=== PATIENT | female | born 1945 | race Caucasian/White ===

== ENCOUNTER 2016-11-08 21:32 | Inpatient (IN) ==
[2016-11-09] MEDS ORDERED: HALOPERIDOL 0.5 MG TABLET PO PRN (00:24)
[2016-11-09] MEDS ORDERED: HALOPERIDOL 5 MG/ML INJECTION IM PRN (00:24)
[2016-11-09] MEDS ORDERED: LORazepam 0.5 MG TABLET PO PRN (00:24)
[2016-11-09] MEDS ORDERED: HALOPERIDOL 1 MG/0.5 ML ORAL LIQUID PO PRN (01:52)
[2016-11-09] MEDS ORDERED: LORazepam INTENSOL 1mg/0.5ml ORAL LIQUID SL PRN (01:53)
[2016-11-09] MEDS: OMEPRAZOLE 20 MG CAPSULE PO SCH ×3 (09:51→16:31)
[2016-11-09] MEDS: LEVOTHYROXINE 25 MCG TABLET PO SCH (09:52)
[2016-11-09] MEDS: LORATADINE 10 MG TABLET PO SCH (09:52)
[2016-11-09] MEDS: CITALOPRAM 40 MG TABLET PO SCH (09:52)
[2016-11-09] MEDS: DIVALPROEX ER 500 MG TABLET PO SCH ×2 (09:53→21:01)
[2016-11-09] MEDS: MELOXICAM 7.5 MG TABLET PO SCH (09:53)
[2016-11-09] MEDS: FUROSEMIDE 20 MG TABLET PO SCH (09:53)
[2016-11-09] MEDS: MULTI-VIT + MINERAL (Opti-gen) TABLET PO SCH (09:54)
[2016-11-09] MEDS: ALLOPURINOL 300 MG TABLET PO SCH (09:54)
[2016-11-09] MEDS: TIOTROPIUM 18mcg/cap HANDIHALER ORAL INH SCH (10:18)
[2016-11-09] MEDS: NICOTINE 14 MG PATCH TD SCH (12:25)
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
--- NOTE | 2016-11-09 14:08 | History & Physical Report ---
<Therese Vides - Last Filed: 11/09/16 13:56> History of Present Illness Date: 11/09/16 Chief complaint: bipolar, hypertension HPI: Linette Villalba is a 71-year-old female resident of [facility] in [place] who presented to [facility] on 11/08/16 for psychiatric evaluation of agitation and suicidal ideations. She reports that for the past couple of weeks she has started to feel like she was beginning to "spiral" down. She admits to active thoughts of harming herself, specifically with a knife and has a history of prior gestures and attempts including cutting on her wrist with a dull knife and previous intentional medication overdose. She reports that she has become increasing irritable and agitated and has been having problems sleeping. She admits to feeling unsafe and feels as if her brain is not functioning correctly. Due to increasing thoughts of stabbing herself, she notified the triage provider at [facility] and was taken to [facility] for further evaluation. She denies any recent illness, fever, chills, chest pain, shortness of breath, abdominal pain, nausea, vomiting, dysuria or hematuria. No diarrhea or constipation. She denies visual or auditory hallucinations. In the ED, she underwent psychiatric screening including labs which revealed WBC 8.4, hemoglobin 12.7, platelets 247, hyponatremia 135, potassium 3.8, BUN 21, SCr 0.9 and glucose 103. UA showed >50 WBC with bacteria present. She was diagnosed with UTI and given Keflex 500mg x 1 dose but no RX was provided. Due to her bipolar disorder with suicidal ideation, she was [facility] for further psychiatric evaluation and treatment. The hospitalist service was consulted for medical management. In addition to a history of bipolar, she also has hypertension, COPD, GERD, hypothyroid and hyperlipidemia. Review of Systems - Constitutional Constitutional: Absent: daytime sleepiness, fever(s), headache(s), weakness Comments: insomnia - EENMT Eyes: Absent: blurry vision, change in vision Nose: Present: allergies. Absent: nosebleeds Mouth/Throat: Present: dry mouth. Absent: sore throat - Cardiovascular Cardiovascular: Absent: chest pain, palpitations, syncope, dyspnea on exertion Vascular: Present: pedal edema. Absent: unilateral swelling - Respiratory Respiratory: Present: cough (chronic), dyspnea on exertion (chronic), wheezing. Absent: pain on inspiration - Gastrointestinal Gastrointestinal: Absent: abdominal pain, change in bowel habits, change in stool character, constipation, diarrhea, nausea, vomiting - Genitourinary Genitourinary: Present: dysuria. Absent: flank pain - Musculoskeletal Musculoskeletal: Absent: back pain, deformity, limited range of motion, muscle weakness - Integumentary/Breasts Integumentary: Absent: erythema, lesions, jaundice - Neurological Neurological: Absent: abnormal movements, abnormal speech, convulsions, focal weakness, weakness - Psychiatric Psychiatric: Present: as per HPI, abnormal sleep pattern, anxiety, behavioral changes, depression, difficulty concentrating, hopelessness, mood swings, paranoia, suicidal ideation - Endocrine Endocrine: Absent: polyphagia, polyuria - Hematologic/Lymphatic Hematologic/Lymphatic: Absent: easy bleeding - Allergic/Immunologic Allergic/Immunologic: Present: seasonal rhinorrhea PFSH Patient Stated Medical History Other HEENT Yes: wears reading glasses, not with pt Hypertension Yes Chronic Obstructive Pulmonary Yes Disease (COPD) Ulcer Yes: PUD Osteoarthritis Yes: knees Other Musculoskeletal Yes: Arthritis Bipolar Disorder Yes Depression Yes Medical History Updates: 1. Bipolar. 2. Hypertension. 3. COPD. 4. Hyperlipidemia. 5. COPD. 6. GERD. 7. Hypothyroidism. 8. Chronic pain. 9. Seasonal allergies. 10. Osteoarthritis. 11. Obesity. Surgical History: 1. 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 - Social History Smoking status: Current every day smoker Packs per day: 1 second hand exposure: Yes Time spent discussing smoking cessation with patient: 3 to 10 minutes Substance use type: does not use Alcohol intake frequency: does not drink Housing: assisted living facility ([facility]) Household members: caregiver Current occupational status: retired Does patient use chewing tobacco?: No Current residence: Assisted Living Medications Home Medications Medication Instructions Recorded Confirmed Type Acetaminophen [Tylenol] 650 mg PO Q6H PRN 11/08/16 11/08/16 History Allopurinol [Zyloprim] 300 mg PO DAILY 11/08/16 11/09/16 History Atorvastatin [Lipitor] 20 mg PO HS 11/08/16 11/09/16 History Divalproex ER [Depakote ER] 500 mg PO BID 11/08/16 11/09/16 History Furosemide [Lasix] 30 mg PO DAILY 11/08/16 11/08/16 History Hydrocodone/APAP 5/325 [[place] 1 tab PO Q6HR PRN 11/08/16 11/08/16 History 5/325] Levothyroxine Tab [Synthroid] 25 mcg PO ACB 11/08/16 11/09/16 History Loratadine [Claritin] 10 mg PO DAILY 11/08/16 11/08/16 History Meloxicam [Mobic] 7.5 mg PO DAILY 11/08/16 11/09/16 History Omeprazole [Prilosec] 20 mg PO AC 11/08/16 11/09/16 History Citalopram [Celexa] 40 mg PO DAILY 11/09/16 11/09/16 History ClonazePAM [Klonopin] 0.5 mg PO TID PRN 11/09/16 11/09/16 History Debrox 4 drops EACH EAR DAILY PRN 11/09/16 11/09/16 History Guaifenesin Oral Liq [Robitussin] 100 mg PO Q4H PRN 11/09/16 11/09/16 History MULTI-VIT + MINERAL (Opti-gen) 1 tab PO DAILY 11/09/16 11/09/16 History [Vision] Robitussin Cough-Chest Dm Liq 5 ml PO Q6H PRN 11/09/16 11/09/16 History Tiotropium Handihaler [Spiriva] 18 mcg ORAL INH DAILY 11/09/16 11/09/16 History Allergies Allergy/AdvReac Type Severity Reaction Status Date / Time adhesive tape AdvReac Unknown Verified 11/09/16 03:41 aspirin AdvReac Unknown Verified 11/09/16 03:43 sulfamethoxazole AdvReac Unknown Verified 11/09/16 03:43 sulfanilamide AdvReac Unknown Verified 11/09/16 03:44 Exam Vital Signs: Temp Pulse Resp BP Pulse Ox 97.4 F 89 16 133/71 92 11/09/16 08:00 11/09/16 10:04 11/09/16 10:29 11/09/16 08:00 11/09/16 10:04 Height: 5 ft 7 in Weight: 87.7 kg Body Mass Index: 30.2 - Constitutional Present: no acute distress, well nourished, well developed, obese, cooperative - Routine HEENT Exam Head: Present: normocephalic, atraumatic Eye: Present: PERRL. Absent: conjunctival icterus, scleral injection ENT: Present: mucous membranes moist - Routine Neck Exam Present: supple, full ROM, trachea midline - Routine Chest/Breast/Axilla Exam Chest wall: Absent: tenderness - Routine Respiratory Exam Present: decreased breath sounds, prolonged expiratory phase, wheezes. Absent: rhonchi Comments: pursed lips - Routine Cardiovascular Exam Present: RRR, S1, S2 - Routine Abdominal Exam Present: soft, normoactive bowel sounds, non distended, non tender - Routine Extremities Exam Present: edema (trace bilateral lower extremities), full ROM, pulses intact Comments: ambulates easily but has walker for support if needed; doesn't use walker on ambulation to room. - Routine Back/Spine/Pelvis Exam Back/Spine: Present: full ROM - Routine Skin Exam Present: intact, dry, warm. Absent: erythema, rash - Routine Neurological Exam Present: alert, oriented X3, moving all extremities, hearing grossly intact, normal speech - Routine Psychiatric Exam Present: normal thought process, suicidal ideation, cooperative. Absent: homicidal ideation, auditory hallucinations, visual hallucinations Assessment and Plan Assessment and Plan: . Bipolar with behavioral disturbance and suicidal ideation. * Agree with [facility] to [facility] for further evaluation and psychiatric treatment. * Provide a safe and supportive environment, encouraging patient to participate in floor activities. * Obtain admission work up. CBC, CMP and UA obtained prior to admission at [facility]. Obtain remaining labs and imaging - results pending. . UTI, acute. * UA obtained at [facility] revealed >50 WBC and + bacteria. Patient was given Keflex 500mg po x 1 dose with no RX provided. Will restart Keflex 500mg x 10 days. * Monitor closely for signs of worsening infection. . Hyponatremia, present on admission. * Sodium 135 per [facility] labs on 11/08. Encourage oral intake and will recheck labs on 11/10 to monitor electrolytes and renal function. . Protein calorie malnutrition, mild, present on admission. * Prealbumin was 12.7 on admission. Consult dietary for recommendations. . Hypertension, chronic. * Continue home lasix 30mg and monitor closely. . COPD, chronic. * Patient was noticeably short of breath with ambulation on exam and lung sounds were wheezy. Continue home spiriva. * Supplemental O2 to maintain SAO2 >90% and monitor pulse oximetry Q2-4 hours and as needed. * DuoNeb QID and PRN for dyspnea. . GERD, chronic. * Continue home omeprozole. . Hypothryoidism, chronic. * TSH on admission was 1.79. Continue home synthroid. . Hyperlipidemia, chronic. * Lipid panel pending. * Continue home atorvastatin. . Chronic pain. * Continue home [place]. . Gout. * Continue home allopurinol. Upon discharge, patient's care will be returned to her PCP. Sepsis Assessment - Evaluation Sepsis screening result: No Definite Risk - Focused Exam Vital Signs Temp Pulse Resp BP Pulse Ox 11/09/16 10:29 16 11/09/16 10:04 89 20 92 11/09/16 08:00 97.4 F 89 20 133/71 92 Capillary refill: < 2-3 Seconds Hospital Course Summary Disclaimer: The visit summary below is not to be considered part of the above Progress Note. Hospital Course: 11/09/16 14:29 . Bipolar with behavioral disturbance and suicidal ideation. * Agree with [facility] to [facility] for further evaluation and psychiatric treatment. * Provide a safe and supportive environment, encouraging patient to participate in floor activities. * Obtain admission work up. CBC, CMP and UA obtained prior to admission at [facility]. Obtain remaining labs and imaging - results pending. . UTI, acute. * UA obtained at [facility] revealed >50 WBC and + bacteria. Patient was given Keflex 500mg po x 1 dose with no RX provided. Will restart Keflex 500mg x 10 days. * Monitor closely for signs of worsening infection. . Hyponatremia, present on admission. * Sodium 135 per [facility] labs on 11/08. Encourage oral intake and will recheck labs on 11/10 to monitor electrolytes and renal function. . Protein calorie malnutrition, mild, present on admission. * Prealbumin was 12.7 on admission. Consult dietary for recommendations. . Hypertension, chronic. * Continue home lasix 30mg and monitor closely. . COPD, chronic. * Patient was noticeably short of breath with ambulation on exam and lung sounds were wheezy. Continue home spiriva. * Supplemental O2 to maintain SAO2 >90% and monitor pulse oximetry Q2-4 hours and as needed. * DuoNeb QID and PRN for dyspnea. . GERD, chronic. * Continue home omeprozole. . Hypothryoidism, chronic. * TSH on admission was 1.79. Continue home synthroid. . Hyperlipidemia, chronic. * Lipid panel pending. * Continue home atorvastatin. . Chronic pain. * Continue home [place]. . Gout. * Continue home allopurinol. Upon discharge, patient's care will be returned to her PCP. <Yola oSn - Last Filed: 11/09/16 20:32> History of Present Illness Date: 11/09/16 [facility] Patient Stated Medical History Other HEENT Yes: wears reading glasses, not with pt Hypertension Yes Chronic Obstructive Pulmonary Yes Disease (COPD) Ulcer Yes: PUD Osteoarthritis Yes: knees Other Musculoskeletal Yes: Arthritis Bipolar Disorder Yes Depression Yes Exam Vital Signs: Temp Pulse Resp BP Pulse Ox 97.2 F 71 18 143/69 H 91 11/09/16 16:00 11/09/16 16:00 11/09/16 19:40 11/09/16 16:00 11/09/16 16:00 Height: 1.7 m Weight: 87.7 kg Assessment and Plan Assessment and Plan: 11/09/2016-I reviewed this chart, the patient history, and the COMPUTER TRAINER's/PA's documented findings as above. We discussed and formulated the assessment and plan as above with the additions below.-Dr. Son Patient is seen this evening after supper. She states she has chronic shoulder and leg pains but denies any other pain. She specifically denies headache, chest pain or abdominal pain. She states she is eating and drinking okay. She denies any shortness of breath. She denies any dysuria. She was recently started on Keflex for UTI. She is not able to give much of a history. On exam she is alert and in no acute distress. Chest reveals expiratory wheezes bilaterally and she states this is chronic. Cardiovascular reveals a regular rate and rhythm without murmur, S3 or S4. Abdomen is soft and nontender. Extremities are free of edema. Skin is warm and dry and without rashes. Agree with Keflex for UTI, but will change to twice daily instead of 3 times daily. Regarding hyponatremia, will monitor and may need fluid restriction for sending. Regarding COPD, we'll continue with Spiriva and DuoNeb. Await pending lab including folate, lipid panel, B-12 and RPR. Will await urine culture. TSH and A1c were in the normal range. Thank you for allowing us to participate in the care of your patient. We will follow along with you. Sepsis Assessment - Focused Exam Vital Signs Temp Pulse Resp BP Pulse Ox 11/09/16 19:40 18 11/09/16 16:00 97.2 F 71 20 143/69 H 91 11/09/16 15:46 92 11/09/16 15:25 16 92 11/09/16 10:29 16 11/09/16 10:04 89 20 92 Hospital Course Summary Disclaimer: The visit summary below is not to be considered part of the above Progress Note.
[2016-11-09] MEDS ORDERED: IPRATROPIUM/ALBUTEROL 2.5mg-0.5mg/3ml NEB AEROSOL PRN (14:33)
--- NOTE | 2016-11-09 15:09 | CT Scan Report ---
Indication: change in mental status PROCEDURE: CT head/brain wo con: Encounter: Initial Comparison: None Technique: Axial CT images through the head were performed without contrast. Iterative Reconstruction dose reducing technique was utilized. FINDINGS: Mild to moderate generalized atrophy. The ventricles are of normal size, shape, and contour for the patient's age. There are multiple areas of low attenuation in the white matter which most likely represent changes from chronic microvascular ischemia. 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 The brainstem, cerebellum, and cerebral hemispheres otherwise have a normal morphology and CT attenuation. There is no evidence of midline displacement. No hemorrhage, signs of acute territorial stroke, mass effect, mass lesions, or edema is evident. The visualized portions of the skull base, midface, and calvarium demonstrate no abnormality. The paranasal sinuses are well aerated and free of significant disease. The tympanic and mastoid cavities appear normal. IMPRESSION: No acute intracranial abnormality or hemorrhage. .
--- NOTE | 2016-11-09 15:20 | XRay Report ---
INDICATION: Change in mental status PROCEDURE: CHEST 2-VIEWS UPRIGHT (PA & LAT) Encounter: Initial COMPARISON: None FINDINGS: The lungs are clear without evidence of focal abnormal airspace opacity. There is no pleural effusion or pneumothorax. The heart size, mediastinal contours and pulmonary vascularity are within normal limits. Moderate to large gas containing hiatal hernia. IMPRESSION: No acute cardiopulmonary disease. .
[2016-11-09] MEDS: IPRATROPIUM/ALBUTEROL 2.5mg-0.5mg/3ml NEB AEROSOL SCH ×2 (15:25→19:40)
[2016-11-09] MEDS: ATORVASTATIN 20 MG TABLET PO SCH (21:02)
[2016-11-10] MEDS: IPRATROPIUM/ALBUTEROL 2.5mg-0.5mg/3ml NEB AEROSOL SCH ×4 (07:27→19:40)
[2016-11-10] MEDS: MELOXICAM 7.5 MG TABLET PO SCH (08:59)
[2016-11-10] MEDS: OMEPRAZOLE 20 MG CAPSULE PO SCH ×3 (09:00→16:00)
[2016-11-10] MEDS: MULTI-VIT + MINERAL (Opti-gen) TABLET PO SCH (09:00)
[2016-11-10] MEDS: ALLOPURINOL 300 MG TABLET PO SCH (09:00)
[2016-11-10] MEDS: CITALOPRAM 40 MG TABLET PO SCH (09:00)
[2016-11-10] MEDS: DIVALPROEX ER 500 MG TABLET PO SCH ×2 (09:00→21:23)
[2016-11-10] MEDS: LEVOTHYROXINE 25 MCG TABLET PO SCH (09:01)
[2016-11-10] MEDS: FUROSEMIDE 20 MG TABLET PO SCH (09:01)
[2016-11-10] MEDS: LORATADINE 10 MG TABLET PO SCH (09:02)
[2016-11-10] MEDS: NICOTINE 14 MG PATCH TD SCH (09:03)
[2016-11-10] MEDS: NICOTINE PATCH REMOVAL TD SCH (09:03)
[2016-11-10] MEDS: HYDROCODONE/APAP 5mg/325mg TABLET PO PRN (09:16)
[2016-11-10] MEDS: TIOTROPIUM 18mcg/cap HANDIHALER ORAL INH SCH (11:35)
[2016-11-10] MEDS: ATORVASTATIN 20 MG TABLET PO SCH (21:23)
--- NOTE | 2016-11-10 21:56 | Neuropsych Progress Note ---
[facility] Subjective Date: 11/11/16 - Sujective/Severity of Illness Medications: Acetaminophen/Hydrocodone Bitart ([place] 5/325) 1 tab PO Q6HR PRN PRN Reason: Pain Last Admin: 11/10/16 09:16 Dose: 1 tab Albuterol/Ipratropium (Duoneb) 3 ml AEROSOL QID [facility] Last Admin: 11/10/16 19:40 Dose: 3 ml Albuterol/Ipratropium (Duoneb) 3 ml AEROSOL Q6H PRN Allopurinol (Zyloprim) 300 mg PO DAILY [facility] Last Admin: 11/10/16 09:00 Dose: 300 mg Atorvastatin Calcium (Lipitor) 20 mg PO HS [facility] Last Admin: 11/10/16 21:23 Dose: 20 mg Cephalexin HCl (Keflex) 500 mg PO TID [facility] Stop: 11/19/16 23:00 Last Admin: 11/10/16 21:23 Dose: 500 mg Citalopram Hydrobromide (Celexa) 40 mg PO DAILY [facility] Last Admin: 11/10/16 09:00 Dose: 40 mg Divalproex Sodium (Depakote Er) 500 mg PO BID [facility] Last Admin: 11/10/16 21:23 Dose: 500 mg Furosemide (Lasix) 30 mg PO DAILY [facility] Last Admin: 11/10/16 09:01 Dose: 30 mg Haloperidol (Haldol) 0.5 mg PO Q6H PRN PRN Reason: Extreme agitation Haloperidol Decanoate (Haldol Liquid) 0.5 mg PO Q6H PRN Haloperidol Lactate (Haldol) 0.5 mg IM Q6H PRN PRN Reason: Extreme agitation Levothyroxine Sodium (Synthroid) 25 mcg PO ACB [facility] Last Admin: 11/10/16 09:01 Dose: 25 mcg Loratadine (Claritin) 10 mg PO ACB [facility] Last Admin: 11/10/16 09:02 Dose: 10 mg Lorazepam (Ativan) 0.5 mg PO Q6H PRN PRN Reason: Extreme agitation Lorazepam (Ativan Inj) 0.5 mg IM Q6H PRN PRN Reason: Extreme agitation Lorazepam (Ativan Intensol) 0.5 mg SL Q6H PRN Meloxicam (Mobic) 7.5 mg PO WB [facility] Multivitamins/Minerals (Vision) 1 tab PO DAILY [facility] Last Admin: 11/10/16 09:00 Dose: 1 tab Nicotine (Nicotine Patch Removal) 1 removal TD DAILY [facility] Last Admin: 11/10/16 09:03 Dose: 1 removal Nicotine (Nicoderm) 14 mg TD DAILY [facility] Last Admin: 11/10/16 09:03 Dose: 14 mg Omeprazole (Prilosec) 20 mg PO AC [facility] Last Admin: 11/10/16 16:00 Dose: 20 mg Tiotropium [place] (Spiriva) 1 cap ORAL INH DAILY [facility] Last Admin: 11/10/16 11:35 Dose: 1 cap Subjective: Patient seen and chart reviewed. Case discussed with treatment team. On interview, patient is pleasant and cooperative. She is resting in dayroom and states she feels better since admission, less irritable and not suicidal. She cannot name anything specific that has helped with this. She states that they "cut back on her Depakote 1.5 months ago" but she felt it was fine before. Patient denies HI or AVH though previously admits to wanting to harm "anyone who got in her way". Patient denies any adverse side effects related to psychotropic medications. Nursing staff report patient has been cooperative overall. Patient slept well overnight in addition to a 1.5 hour nap. VSS. Patient is eating well. Psychotropic PRNs required in the past 24 hours: none. Start Time: 17:00 Stop Time: 17:20 Mental Status Exam Vitals: Last Vital Signs Temp 97.8 F 11/10/16 20:54 Pulse 82 11/10/16 20:54 Resp 18 11/10/16 20:54 BP 107/61 11/10/16 20:54 Pulse Ox 93 11/10/16 20:54 Height: 1.7 m Weight: 87.7 kg - Mental Status Exam Muscle Strength/Tone: Normal Dressing: Casual Grooming: Fair Attitude: Cooperative, Guarded Motor Activity: Normal Eye Contact: Fair Speech: Slowed Volume: Soft Rhythm: Appropriate Rhythm Orientation: Oriented to person, Oriented to place Mood: Neutral (Affect blunted) Rate of Thoughts: Delayed Thought Organization: Organized Associations: Intact Thought Content: Ruminations, Helplessness, Worthlessness Perception/Psychotic: Hx psychosis, not current Fund of Knowledge: Sabrina aware current events Memory: Grossly Intact Suicidal Ideation: Intermittent Homicidal Ideation: Denies Insight: Limited Judgement: Limited Impulse Control: Fair - Laboratory Result Diagrams: 11/10/16 04:34 11/10/16 04:34 Laboratory Results - last 24 hr 11/09/16 11/10/16 11/10/16 06:46 04:34 04:34 WBC 5.6 RBC 3.71 L Hgb 11.3 L Hct 34.7 L MCV 93.5 MCH 30.5 MCHC 32.6 RDW Std Deviation 49.3 Plt Count 220 MPV 12.2 Immature Gran % (Auto) 0.2 Neut % (Auto) 42.6 Lymph % (Auto) 38.8 Johnson % (Auto) 13.0 H Eos % (Auto) 4.3 H Baso % (Auto) 1.1 Neut # 2.4 Lymph # 2.2 Johnson # 0.7 Eos # 0.2 Baso # 0.1 Abs Immat Gran (auto) 0.01 Turbidity < 20 Sodium 137 Potassium 4.4 Chloride 97 L Carbon Dioxide 30 Anion Gap 10 BUN 22.0 H Creatinine 0.5 L GFR Calculation 122 BUN/Creatinine Ratio 44 H Glucose 89 Calculated Osmolality 266 Calcium 9.0 Icterus Index < 2 Specimen Hemolysis 16 RPR Non-reactive Assessment and Plan (1) Bipolar 1 disorder Current visit: Yes Status: Chronic Check trough VPA level in AM - make adjustments as needed, compare to level upon admission.
[2016-11-11] MEDS: LORATADINE 10 MG TABLET PO SCH (06:35)
[2016-11-11] MEDS: OMEPRAZOLE 20 MG CAPSULE PO SCH ×3 (06:35→17:16)
[2016-11-11] MEDS: LEVOTHYROXINE 25 MCG TABLET PO SCH (06:35)
[2016-11-11] MEDS: IPRATROPIUM/ALBUTEROL 2.5mg-0.5mg/3ml NEB AEROSOL SCH ×5 (07:52→19:40)
[2016-11-11] MEDS: MELOXICAM 7.5 MG TABLET PO SCH (10:14)
[2016-11-11] MEDS: MULTI-VIT + MINERAL (Opti-gen) TABLET PO SCH (10:14)
[2016-11-11] MEDS: DIVALPROEX ER 500 MG TABLET PO SCH ×2 (10:14→20:57)
[2016-11-11] MEDS: FUROSEMIDE 20 MG TABLET PO SCH (10:15)
[2016-11-11] MEDS: CITALOPRAM 40 MG TABLET PO SCH (10:15)
[2016-11-11] MEDS: ALLOPURINOL 300 MG TABLET PO SCH (10:16)
[2016-11-11] MEDS: NICOTINE 14 MG PATCH TD SCH (10:17)
[2016-11-11] MEDS: NICOTINE PATCH REMOVAL TD SCH (10:17)
[2016-11-11] MEDS: TIOTROPIUM 18mcg/cap HANDIHALER ORAL INH SCH (14:03)
[2016-11-11] MEDS: ATORVASTATIN 20 MG TABLET PO SCH (21:02)
--- NOTE | 2016-11-11 21:27 | Neuropsych Progress Note ---
[facility] Subjective Date: 11/11/16 - Sujective/Severity of Illness Medications: Acetaminophen/Hydrocodone Bitart ([place] 5/325) 1 tab PO Q6HR PRN PRN Reason: Pain Last Admin: 11/10/16 09:16 Dose: 1 tab Albuterol/Ipratropium (Duoneb) 3 ml AEROSOL QID [facility] Last Admin: 11/11/16 19:40 Dose: 3 ml Albuterol/Ipratropium (Duoneb) 3 ml AEROSOL Q6H PRN Allopurinol (Zyloprim) 300 mg PO DAILY [facility] Last Admin: 11/11/16 10:16 Dose: 300 mg Atorvastatin Calcium (Lipitor) 20 mg PO HS [facility] Last Admin: 11/11/16 21:02 Dose: 20 mg Cephalexin HCl (Keflex) 500 mg PO TID [facility] Stop: 11/19/16 23:00 Last Admin: 11/11/16 20:54 Dose: 500 mg Citalopram Hydrobromide (Celexa) 40 mg PO DAILY [facility] Last Admin: 11/11/16 10:15 Dose: 40 mg Divalproex Sodium (Depakote Er) 500 mg PO BID [facility] Last Admin: 11/11/16 20:57 Dose: 500 mg Furosemide (Lasix) 30 mg PO DAILY [facility] Last Admin: 11/11/16 10:15 Dose: 30 mg Haloperidol (Haldol) 0.5 mg PO Q6H PRN PRN Reason: Extreme agitation Haloperidol Decanoate (Haldol Liquid) 0.5 mg PO Q6H PRN Haloperidol Lactate (Haldol) 0.5 mg IM Q6H PRN PRN Reason: Extreme agitation Levothyroxine Sodium (Synthroid) 25 mcg PO ACB [facility] Last Admin: 11/11/16 06:35 Dose: 25 mcg Loratadine (Claritin) 10 mg PO ACB [facility] Last Admin: 11/11/16 06:35 Dose: 10 mg Lorazepam (Ativan) 0.5 mg PO Q6H PRN PRN Reason: Extreme agitation Lorazepam (Ativan Inj) 0.5 mg IM Q6H PRN PRN Reason: Extreme agitation Lorazepam (Ativan Intensol) 0.5 mg SL Q6H PRN Meloxicam (Mobic) 7.5 mg PO WB [facility] Last Admin: 11/11/16 10:14 Dose: 7.5 mg Multivitamins/Minerals (Vision) 1 tab PO DAILY [facility] Last Admin: 11/11/16 10:14 Dose: 1 tab Nicotine (Nicotine Patch Removal) 1 removal TD DAILY [facility] Last Admin: 11/11/16 10:17 Dose: 1 removal Nicotine (Nicoderm) 14 mg TD DAILY [facility] Last Admin: 11/11/16 10:17 Dose: 14 mg Omeprazole (Prilosec) 20 mg PO AC [facility] Last Admin: 11/11/16 17:16 Dose: 20 mg Tiotropium [place] (Spiriva) 1 cap ORAL INH DAILY [facility] Last Admin: 11/11/16 14:03 Dose: 1 cap Subjective: Patient seen and chart reviewed. Case discussed with treatment team. On interview, patient is very pleasant and cooperative. She reports her mood is more stable since admission. She wonders if she missed some doses of mood stabilizer prior to admission because if she wanted to sleep in AM, staff would not give her AM meds. Patient denies any SI, HI or AVH. She does say that she has thoughts of "smacking someone upside the head" but this person is not someone on the unit and she denies any plan/intent. Patient denies any adverse side effects related to psychotropic medications. Nursing staff report patient has been cooperative overall, no hallucinations or delusions observed, no aggression, interacts well with others, pleasant and cooperative. Patient slept 8.25 hours overnight. VSS. Patient is eating well. Psychotropic PRNs required in the past 24 hours: none. Start Time: 16:40 Stop Time: 17:00 Mental Status Exam Vitals: Last Vital Signs Temp 97.7 F 11/11/16 20:07 Pulse 83 11/11/16 20:07 Resp 18 11/11/16 20:07 BP 112/62 11/11/16 20:07 Pulse Ox 93 11/11/16 20:07 Height: 1.7 m Weight: 87.7 kg - Mental Status Exam Muscle Strength/Tone: Normal Dressing: Casual Grooming: Fair Attitude: Cooperative Motor Activity: Normal Eye Contact: Good Speech: Normal Volume: Soft Rhythm: Appropriate Rhythm Orientation: Oriented to person, Oriented to place Mood: Neutral (Affect blunted) Rate of Thoughts: Delayed Thought Organization: Organized Associations: Intact Thought Content: Ruminations Perception/Psychotic: Hx psychosis, not current Fund of Knowledge: Sabrina aware current events Memory: Grossly Intact Suicidal Ideation: Intermittent Homicidal Ideation: Denies Insight: Limited Judgement: Limited Impulse Control: Fair - Laboratory Result Diagrams: 11/10/16 04:34 11/10/16 04:34 Laboratory Results - last 24 hr 11/09/16 11/11/16 06:46 07:08 Triglycerides 86 Cholesterol 145 LDL Cholesterol, Calc 56.8 L VLDL Cholesterol 17.2 HDL Cholesterol 71 H Cholesterol/HDL Ratio 2.0 Valproic Acid 45.6 L Assessment and Plan (1) Bipolar 1 disorder Current visit: Yes Status: Chronic Patient improving overall since admission - perhaps due to increased adherence. Continue to monitor patient's mood, behavior and response to treatment - consider rechecking VPA level after new steady-state has been reached.
[2016-11-11] MEDS: HYDROCODONE/APAP 5mg/325mg TABLET PO PRN (22:11)
[2016-11-12] MEDS: IPRATROPIUM/ALBUTEROL 2.5mg-0.5mg/3ml NEB AEROSOL SCH ×4 (07:15→20:00)
[2016-11-12] MEDS: TIOTROPIUM 18mcg/cap HANDIHALER ORAL INH SCH (08:00)
[2016-11-12] MEDS: LEVOTHYROXINE 25 MCG TABLET PO SCH (09:33)
[2016-11-12] MEDS: LORATADINE 10 MG TABLET PO SCH (09:33)
[2016-11-12] MEDS: MELOXICAM 7.5 MG TABLET PO SCH (09:33)
[2016-11-12] MEDS: OMEPRAZOLE 20 MG CAPSULE PO SCH ×3 (09:33→17:32)
[2016-11-12] MEDS: DIVALPROEX ER 500 MG TABLET PO SCH ×2 (09:34→20:51)
[2016-11-12] MEDS: FUROSEMIDE 20 MG TABLET PO SCH (09:35)
[2016-11-12] MEDS: CITALOPRAM 40 MG TABLET PO SCH (09:35)
[2016-11-12] MEDS: NICOTINE 14 MG PATCH TD SCH (09:35)
[2016-11-12] MEDS: ALLOPURINOL 300 MG TABLET PO SCH (09:35)
[2016-11-12] MEDS: NICOTINE PATCH REMOVAL TD SCH (09:36)
[2016-11-12] MEDS: MULTI-VIT + MINERAL (Opti-gen) TABLET PO SCH (09:37)
--- NOTE | 2016-11-12 14:04 | Progress Note ---
Subjective: Linette was seen in the day room participating in group activities. Nursing staff deny any concerns - she slept well last night and has been cooperative with cares. The patient herself states that she has been feeling well and denies any new physical or medical issues. She has not had any trouble breathing , chest pain, abdominal pain, or joint complaints. She notes a little bit of swelling in her ankles but it doesn't bother her. Objective Vital signs: Temp Pulse Resp BP Pulse Ox 96.2 F L 67 16 103/54 96 11/12/16 08:00 11/12/16 08:00 11/12/16 10:15 11/12/16 08:00 11/12/16 10:15 Height: 1.7 m Weight: 87.7 kg Body Mass Index: 30.2 - Constitutional Present: no acute distress, well nourished, well developed, obese, cooperative - Routine HEENT Exam ENT: Present: mucous membranes moist, oropharynx clear - Routine Respiratory Exam Present: CTA bilaterally - Routine Cardiovascular Exam Present: S1, S2, murmur - Routine Abdominal Exam Present: soft, non distended, non tender - Routine Extremities Exam Present: edema (trace edema bilateral ankles), pulses intact, normal capillary refill - Routine Musculoskeletal Exam Musculoskeletal: moving extremities well - Routine Skin Exam Present: intact, dry, warm - Routine Neurological Exam Present: alert, oriented X3 - Routine Psychiatric Exam Present: normal affect, normal thought process Results - Labs CBC & Chem 7: 11/10/16 04:34 11/10/16 04:34 Assessment and Plan (1) UTI (urinary tract infection) Current visit: Yes Status: Acute (2) COPD (chronic obstructive pulmonary disease) Current visit: Yes Status: Chronic (3) HTN (hypertension) Current visit: Yes Status: Chronic (4) PUD (peptic ulcer disease) Current visit: Yes Status: Chronic (5) Osteoarthritis Current visit: Yes Status: Chronic (6) Delirium Problem details: rule out, secondary to uti Current visit: Yes Status: Chronic (7) Bipolar 1 disorder Current visit: Yes Status: Chronic (8) Hyponatremia Current visit: Yes Status: Resolved (9) Mild protein-calorie malnutrition Current visit: Yes Status: Acute Assessment and Plan: UTI - ruled out -urine culture was negative; no dysuria -DC abx Hyponatremia -improved to 137 Mild PCM -nutritional consult - eating well with selected food preferences; 24 hour intake 99 gm PRO and 1940 kcal COPD -stable today Psych notes reviewed - improving Sepsis Assessment - Evaluation Sepsis screening result: No Definite Risk - Focused Exam Vital Signs Temp Pulse Resp BP Pulse Ox 11/12/16 10:15 16 96 11/12/16 08:00 96.2 F L 67 18 103/54 96 11/12/16 07:15 16 95 11/12/16 04:48 79 11/12/16 04:46 20 91 Respiratory exam: Present: decreased breath sounds, prolonged expiratory phase, wheezes. Absent: rhonchi Cardiovascular exam: Present: RRR, S1, S2 Capillary refill: < 2-3 Seconds Hospital Course Summary Disclaimer: The visit summary below is not to be considered part of the above Progress Note. Hospital Course: 11/09/16 14:29 . Bipolar with behavioral disturbance and suicidal ideation. * Agree with admission to [facility] unit for further evaluation and psychiatric treatment. * Provide a safe and supportive environment, encouraging patient to participate in floor activities. * Obtain admission work up. CBC, CMP and UA obtained prior to admission at [facility]. Obtain remaining labs and imaging - results pending. . UTI, acute. * UA obtained at [facility] revealed >50 WBC and + bacteria. Patient was given Keflex 500mg po x 1 dose with no RX provided. Will restart Keflex 500mg x 10 days. * Monitor closely for signs of worsening infection. . Hyponatremia, present on admission. * Sodium 135 per [facility] labs on 11/08. Encourage oral intake and will recheck labs on 11/10 to monitor electrolytes and renal function. . Protein calorie malnutrition, mild, present on admission. * Prealbumin was 12.7 on admission. Consult dietary for recommendations. . Hypertension, chronic. * Continue home lasix 30mg and monitor closely. . COPD, chronic. * Patient was noticeably short of breath with ambulation on exam and lung sounds were wheezy. Continue home spiriva. * Supplemental O2 to maintain SAO2 >90% and monitor pulse oximetry Q2-4 hours and as needed. * DuoNeb QID and PRN for dyspnea. . GERD, chronic. * Continue home omeprozole. . Hypothryoidism, chronic. * TSH on admission was 1.79. Continue home synthroid. . Hyperlipidemia, chronic. * Lipid panel pending. * Continue home atorvastatin. . Chronic pain. * Continue home [place]. . Gout. * Continue home allopurinol. Upon discharge, patient's care will be returned to her PCP. 11/12/16 14:10 UTI - ruled out -urine culture was negative; no dysuria -DC abx Hyponatremia -improved to 137 Mild PCM -nutritional consult - eating well with selected food preferences; 24 hour intake 99 gm PRO and 1940 kcal COPD -stable today Psych notes reviewed - improving
[2016-11-12] MEDS: ATORVASTATIN 20 MG TABLET PO SCH (21:15)
--- NOTE | 2016-11-12 21:34 | Neuropsych Progress Note ---
[facility] Subjective Date: 11/13/16 - Sujective/Severity of Illness Medications: Acetaminophen/Hydrocodone Bitart ([place] 5/325) 1 tab PO Q6HR PRN PRN Reason: Pain Last Admin: 11/11/16 22:11 Dose: 1 tab Albuterol/Ipratropium (Duoneb) 3 ml AEROSOL QID [facility] Last Admin: 11/12/16 20:00 Dose: 3 ml Albuterol/Ipratropium (Duoneb) 3 ml AEROSOL Q6H PRN Allopurinol (Zyloprim) 300 mg PO DAILY [facility] Last Admin: 11/12/16 09:35 Dose: 300 mg Atorvastatin Calcium (Lipitor) 20 mg PO HS [facility] Last Admin: 11/12/16 21:15 Dose: 20 mg Citalopram Hydrobromide (Celexa) 40 mg PO DAILY [facility] Last Admin: 11/12/16 09:35 Dose: 40 mg Divalproex Sodium (Depakote Er) 500 mg PO BID [facility] Last Admin: 11/12/16 20:51 Dose: 500 mg Furosemide (Lasix) 30 mg PO DAILY [facility] Last Admin: 11/12/16 09:35 Dose: 30 mg Haloperidol (Haldol) 0.5 mg PO Q6H PRN PRN Reason: Extreme agitation Haloperidol Decanoate (Haldol Liquid) 0.5 mg PO Q6H PRN Haloperidol Lactate (Haldol) 0.5 mg IM Q6H PRN PRN Reason: Extreme agitation Levothyroxine Sodium (Synthroid) 25 mcg PO ACB [facility] Last Admin: 11/12/16 09:33 Dose: 25 mcg Loratadine (Claritin) 10 mg PO ACB [facility] Last Admin: 11/12/16 09:33 Dose: 10 mg Lorazepam (Ativan) 0.5 mg PO Q6H PRN PRN Reason: Extreme agitation Last Admin: 11/12/16 01:03 Dose: 0.5 mg Lorazepam (Ativan Inj) 0.5 mg IM Q6H PRN PRN Reason: Extreme agitation Lorazepam (Ativan Intensol) 0.5 mg SL Q6H PRN Meloxicam (Mobic) 7.5 mg PO WB [facility] Last Admin: 11/12/16 09:33 Dose: 7.5 mg Multivitamins/Minerals (Vision) 1 tab PO DAILY [facility] Last Admin: 11/12/16 09:37 Dose: 1 tab Nicotine (Nicotine Patch Removal) 1 removal TD DAILY [facility] Last Admin: 11/12/16 09:36 Dose: 1 removal Nicotine (Nicoderm) 14 mg TD DAILY [facility] Last Admin: 11/12/16 09:35 Dose: 14 mg Omeprazole (Prilosec) 20 mg PO AC [facility] Last Admin: 11/12/16 17:32 Dose: 20 mg Tiotropium [place] (Spiriva) 1 cap ORAL INH DAILY [facility] Last Admin: 11/12/16 08:00 Dose: 1 cap Subjective: Patient seen and chart reviewed. Case discussed with treatment team. On interview, patient is pleasant and cooperative. She reports her mood is good and she feels well emotionally. Patient denies any SI, HI or AVH. Patient denies any adverse side effects related to psychotropic medications. Discussed with her interaction between Celexa and omeprazole, and recommendation to decrease Celexa to 20mg. She is very hesitant to have any medication changes as she does not want it to disrupt her moods. Agreed to order EKG and monitor QTc prior to making decision. Nursing staff report patient has been pleasant/cooperative, with no behavioral difficulties. Patient slept well overnight. VSS. Patient is eating well. Psychotropic PRNs required in the past 24 hours: none. Start Time: 17:20 Stop Time: 17:40 Mental Status Exam Vitals: Last Vital Signs Temp 96.8 F 11/12/16 16:00 Pulse 81 11/12/16 16:00 Resp 16 11/12/16 20:00 BP 109/60 11/12/16 16:00 Pulse Ox 97 11/12/16 20:00 Height: 1.7 m Weight: 87.7 kg - Mental Status Exam Muscle Strength/Tone: Normal Dressing: Casual Grooming: Fair Attitude: Cooperative Motor Activity: Normal Eye Contact: Good Speech: Normal Volume: Soft Rhythm: Appropriate Rhythm Orientation: Oriented to person, Oriented to place Mood: Neutral (Appropriate affect) Rate of Thoughts: Delayed Thought Organization: Organized Associations: Intact Thought Content: Other (Anxiety re: meds) Perception/Psychotic: Hx psychosis, not current Fund of Knowledge: Sabrina aware current events Memory: Grossly Intact Suicidal Ideation: Denies Homicidal Ideation: Denies Insight: Limited Judgement: Limited Impulse Control: Fair - Laboratory Result Diagrams: 11/10/16 04:34 06/14/17 04:34 Laboratory Results - last 24 hr 11/09/16 06:46 Vitamin B12 724 Folate 14.1 Assessment and Plan (1) Bipolar 1 disorder Current visit: Yes Status: Chronic Patient very hesistant to change meds despite interaction between omeprazole, Celexa. Patient does not feel that she can go without omeprazole. Agreed to order EKG, review QTc and reassess.
[2016-11-13] MEDS: LEVOTHYROXINE 25 MCG TABLET PO SCH (05:35)
[2016-11-13] MEDS: OMEPRAZOLE 20 MG CAPSULE PO SCH ×2 (05:35→11:58)
[2016-11-13] MEDS: LORATADINE 10 MG TABLET PO SCH (05:35)
[2016-11-13] MEDS: MULTI-VIT + MINERAL (Opti-gen) TABLET PO SCH (09:32)
[2016-11-13] MEDS: MELOXICAM 7.5 MG TABLET PO SCH (09:32)
[2016-11-13] MEDS: DIVALPROEX ER 500 MG TABLET PO SCH ×2 (09:32→21:58)
[2016-11-13] MEDS: ALLOPURINOL 300 MG TABLET PO SCH (09:32)
[2016-11-13] MEDS: NICOTINE 14 MG PATCH TD SCH (09:32)
[2016-11-13] MEDS: FUROSEMIDE 20 MG TABLET PO SCH (09:32)
[2016-11-13] MEDS: CITALOPRAM 40 MG TABLET PO SCH (09:32)
[2016-11-13] MEDS: NICOTINE PATCH REMOVAL TD SCH (09:33)
[2016-11-13] MEDS: IPRATROPIUM/ALBUTEROL 2.5mg-0.5mg/3ml NEB AEROSOL SCH ×4 (10:39→19:50)
[2016-11-13] MEDS: TIOTROPIUM 18mcg/cap HANDIHALER ORAL INH SCH (14:00)
--- NOTE | 2016-11-13 15:24 | Neuropsych Progress Note ---
[facility] Subjective Date: 11/13/16 - Sujective/Severity of Illness Medications: Acetaminophen/Hydrocodone Bitart ([place] 5/325) 1 tab PO Q6HR PRN PRN Reason: Pain Last Admin: 11/11/16 22:11 Dose: 1 tab Albuterol/Ipratropium (Duoneb) 3 ml AEROSOL QID [facility] Last Admin: 11/13/16 13:32 Dose: 3 ml Albuterol/Ipratropium (Duoneb) 3 ml AEROSOL Q6H PRN Allopurinol (Zyloprim) 300 mg PO DAILY [facility] Last Admin: 11/13/16 09:32 Dose: 300 mg Atorvastatin Calcium (Lipitor) 20 mg PO HS [facility] Last Admin: 11/12/16 21:15 Dose: 20 mg Citalopram Hydrobromide (Celexa) 40 mg PO DAILY [facility] Last Admin: 11/13/16 09:32 Dose: 40 mg Divalproex Sodium (Depakote Er) 500 mg PO BID [facility] Last Admin: 11/13/16 09:32 Dose: 500 mg Furosemide (Lasix) 30 mg PO DAILY [facility] Last Admin: 11/13/16 09:32 Dose: 30 mg Haloperidol (Haldol) 0.5 mg PO Q6H PRN PRN Reason: Extreme agitation Haloperidol Decanoate (Haldol Liquid) 0.5 mg PO Q6H PRN Haloperidol Lactate (Haldol) 0.5 mg IM Q6H PRN PRN Reason: Extreme agitation Levothyroxine Sodium (Synthroid) 25 mcg PO ACB [facility] Last Admin: 11/13/16 05:35 Dose: 25 mcg Loratadine (Claritin) 10 mg PO ACB [facility] Last Admin: 11/13/16 05:35 Dose: 10 mg Lorazepam (Ativan) 0.5 mg PO Q6H PRN PRN Reason: Extreme agitation Last Admin: 11/12/16 01:03 Dose: 0.5 mg Lorazepam (Ativan Inj) 0.5 mg IM Q6H PRN PRN Reason: Extreme agitation Lorazepam (Ativan Intensol) 0.5 mg SL Q6H PRN Meloxicam (Mobic) 7.5 mg PO WB [facility] Last Admin: 11/13/16 09:32 Dose: 7.5 mg Multivitamins/Minerals (Vision) 1 tab PO DAILY [facility] Last Admin: 11/13/16 09:32 Dose: 1 tab Nicotine (Nicotine Patch Removal) 1 removal TD DAILY [facility] Last Admin: 11/13/16 09:33 Dose: 1 removal Nicotine (Nicoderm) 14 mg TD DAILY [facility] Last Admin: 11/13/16 09:32 Dose: 14 mg Omeprazole (Prilosec) 20 mg PO ACB [facility] Tiotropium [place] (Spiriva) 1 cap ORAL INH DAILY [facility] Last Admin: 11/12/16 08:00 Dose: 1 cap Subjective: Patient seen and chart reviewed. Case discussed with treatment team. On interview, patient is pleasant and cooperative. She reports her mood is good and she feels well emotionally. Patient denies any SI, HI or AVH. Patient denies any adverse side effects related to psychotropic medications. Discussed with her interaction between Celexa and omeprazole, and recommendation to decrease Celexa to 20mg. She is very hesitant to have any medication changes as she does not want it to disrupt her moods. Agreed to order EKG and monitor QTc prior to making decision. -- This has not yet been done though it is ordered. Nursing staff report patient has been pleasant/cooperative, with no behavioral difficulties. Patient slept well overnight. VSS. Patient is eating well. Psychotropic PRNs required in the past 24 hours: none. Start Time: 12:20 Stop Time: 12:40 Mental Status Exam Vitals: Last Vital Signs Temp 97.6 F 11/13/16 08:00 Pulse 71 11/13/16 08:00 Resp 18 11/13/16 13:32 BP 128/69 11/13/16 08:00 Pulse Ox 90 11/13/16 08:00 Height: 1.7 m Weight: 87.7 kg - Mental Status Exam Muscle Strength/Tone: Normal Dressing: Casual Grooming: Fair Attitude: Cooperative Motor Activity: Normal Eye Contact: Good Speech: Normal Volume: Soft Rhythm: Appropriate Rhythm Orientation: Oriented to person, Oriented to place Mood: Neutral (Appropriate affect) Rate of Thoughts: Delayed Thought Organization: Organized Associations: Intact Thought Content: Other (Anxiety re: meds) Perception/Psychotic: Hx psychosis, not current Fund of Knowledge: Sabrina aware current events Memory: Grossly Intact Suicidal Ideation: Denies Homicidal Ideation: Denies Insight: Limited Judgement: Limited Impulse Control: Fair - Laboratory Result Diagrams: 11/10/16 04:34 11/10/16 04:34 Assessment and Plan (1) Bipolar 1 disorder Current visit: Yes Status: Chronic EKG not yet completed - nursing staff will ensure this is done today. Plan to review EKG, make decision re: dose of Celexa. Patient doing well otherwise.
[2016-11-13] MEDS: ATORVASTATIN 20 MG TABLET PO SCH (21:58)
[2016-11-14] MEDS: IPRATROPIUM/ALBUTEROL 2.5mg-0.5mg/3ml NEB AEROSOL SCH ×4 (06:30→20:15)
[2016-11-14] MEDS: LORATADINE 10 MG TABLET PO SCH (06:44)
[2016-11-14] MEDS: OMEPRAZOLE 20 MG CAPSULE PO SCH (06:44)
[2016-11-14] MEDS: LEVOTHYROXINE 25 MCG TABLET PO SCH (06:44)
[2016-11-14] MEDS: NICOTINE PATCH REMOVAL TD SCH (09:00)
--- NOTE | 2016-11-14 09:51 | Progress Note ---
Subjective: Linette is seen today in follow up. She is resting quietly, is a bit startled when I wake her up. Reports feeling "ok"- no c/o. Chart is reviewed- nursing reports fairly cooperative behaviors recently. Objective Vital signs: Temp Pulse Resp BP Pulse Ox 97.2 F 84 18 132/59 95 11/13/16 22:06 11/13/16 22:06 11/13/16 22:06 11/13/16 22:06 11/13/16 22:06 Height: 1.7 m Weight: 87.7 kg Body Mass Index: 30.2 - Constitutional Present: no acute distress, well nourished, well developed, obese, cooperative - Routine HEENT Exam Head: Present: normocephalic, atraumatic Eye: Present: PERRL - Routine Respiratory Exam Present: CTA bilaterally. Absent: accessory muscle use, rales, rhonchi, wheezes - Routine Cardiovascular Exam Present: RRR, S1, S2, no murmur - Routine Abdominal Exam Present: soft, normoactive bowel sounds, non distended, non tender - Routine Extremities Exam Present: no edema, non tender, normal capillary refill. Absent: cyanosis, clubbing - Routine Musculoskeletal Exam Musculoskeletal: no clubbing or cyanosis, no tenderness, moving extremities well - Routine Skin Exam Present: intact, dry, warm - Routine Neurological Exam Present: alert - Routine Psychiatric Exam Present: cooperative. Absent: normal affect, normal thought process, good insight, good judgment Results - Labs CBC & Chem 7: 11/10/16 04:34 11/10/16 04:34 - Impressions I reviewed CT-no acute findings. Assessment and Plan (1) Bipolar 1 disorder Current visit: Yes Status: Chronic (2) Delirium Problem details: rule out, secondary to uti Current visit: Yes Status: Chronic (3) COPD (chronic obstructive pulmonary disease) Current visit: Yes Status: Chronic (4) HTN (hypertension) Current visit: Yes Status: Chronic (5) PUD (peptic ulcer disease) Current visit: Yes Status: Chronic (6) Osteoarthritis Current visit: Yes Status: Chronic (7) UTI (urinary tract infection) Current visit: Yes Status: Acute (8) Hyponatremia Current visit: Yes Status: Resolved (9) Mild protein-calorie malnutrition Current visit: Yes Status: Acute DVT Prophylaxis: other (N/A) Resuscitation Status: Full Code Assessment and Plan: 11/14/16- *BPAD- Per attending. Behavior is improving per nursing notes. *Pyuria- Cx negative. Asx. Abx. DC'd *HTN- BP is normalized. Continue Lasix. Monitor hydration. Repeat labs in AM. *COPD, w/o exacerbation- Continue current inhaled medications. *Hx. PUD- PPI. Slow improvement. Continue supportive care. Sepsis Assessment - Evaluation Sepsis screening result: No Definite Risk - Focused Exam Vital Signs Temp Pulse Resp BP Pulse Ox 11/13/16 22:06 97.2 F 84 18 132/59 95 Respiratory exam: Present: decreased breath sounds, prolonged expiratory phase, wheezes. Absent: rhonchi Cardiovascular exam: Present: RRR, S1, S2 Capillary refill: < 2-3 Seconds Hospital Course Summary Disclaimer: The visit summary below is not to be considered part of the above Progress Note. Hospital Course: 11/09/16 14:29 . Bipolar with behavioral disturbance and suicidal ideation. * Agree with admission to [facility] for further evaluation and psychiatric treatment. * Provide a safe and supportive environment, encouraging patient to participate in floor activities. * Obtain admission work up. CBC, CMP and UA obtained prior to admission at [facility]. Obtain remaining labs and imaging - results pending. . UTI, acute. * UA obtained at [facility] revealed >50 WBC and + bacteria. Patient was given Keflex 500mg po x 1 dose with no RX provided. Will restart Keflex 500mg x 10 days. * Monitor closely for signs of worsening infection. . Hyponatremia, present on admission. * Sodium 135 per [facility] labs on 11/08. Encourage oral intake and will recheck labs on 11/10 to monitor electrolytes and renal function. . Protein calorie malnutrition, mild, present on admission. * Prealbumin was 12.7 on admission. Consult dietary for recommendations. . Hypertension, chronic. * Continue home lasix 30mg and monitor closely. . COPD, chronic. * Patient was noticeably short of breath with ambulation on exam and lung sounds were wheezy. Continue home spiriva. * Supplemental O2 to maintain SAO2 >90% and monitor pulse oximetry Q2-4 hours and as needed. * DuoNeb QID and PRN for dyspnea. . GERD, chronic. * Continue home omeprozole. . Hypothryoidism, chronic. * TSH on admission was 1.79. Continue home synthroid. . Hyperlipidemia, chronic. * Lipid panel pending. * Continue home atorvastatin. . Chronic pain. * Continue home [place]. . Gout. * Continue home allopurinol. Upon discharge, patient's care will be returned to her PCP. 11/12/16 14:10 UTI - ruled out -urine culture was negative; no dysuria -DC abx Hyponatremia -improved to 137 Mild PCM -nutritional consult - eating well with selected food preferences; 24 hour intake 99 gm PRO and 1940 kcal COPD -stable today Psych notes reviewed - improving 11/14/16 09:52 11/14/16- *BPAD- Per attending. Behavior is improving per nursing notes. *Pyuria- Cx negative. Asx. Abx. DC'd *HTN- BP is normalized. Continue Lasix. Monitor hydration. Repeat labs in AM. *COPD, w/o exacerbation- Continue current inhaled medications. *Hx. PUD- PPI. Slow improvement. Continue supportive care.
[2016-11-14] MEDS: CITALOPRAM 40 MG TABLET PO SCH (09:57)
[2016-11-14] MEDS: DIVALPROEX ER 500 MG TABLET PO SCH ×2 (09:57→21:37)
[2016-11-14] MEDS: MELOXICAM 7.5 MG TABLET PO SCH (09:57)
[2016-11-14] MEDS: MULTI-VIT + MINERAL (Opti-gen) TABLET PO SCH (09:57)
[2016-11-14] MEDS: FUROSEMIDE 20 MG TABLET PO SCH (10:00)
[2016-11-14] MEDS: ALLOPURINOL 300 MG TABLET PO SCH (10:00)
[2016-11-14] MEDS: NICOTINE 14 MG PATCH TD SCH (10:01)
[2016-11-14] MEDS: TIOTROPIUM 18mcg/cap HANDIHALER ORAL INH SCH (17:40)
--- NOTE | 2016-11-14 18:20 | Neuropsych Progress Note ---
[facility] Subjective Date: 11/14/16 - Sujective/Severity of Illness Medications: Acetaminophen/Hydrocodone Bitart ([place] 5/325) 1 tab PO Q6HR PRN PRN Reason: Pain Last Admin: 11/11/16 22:11 Dose: 1 tab Albuterol/Ipratropium (Duoneb) 3 ml AEROSOL QID [facility] Last Admin: 11/14/16 15:20 Dose: 3 ml Albuterol/Ipratropium (Duoneb) 3 ml AEROSOL Q6H PRN Allopurinol (Zyloprim) 300 mg PO DAILY [facility] Last Admin: 11/14/16 10:00 Dose: 300 mg Atorvastatin Calcium (Lipitor) 20 mg PO HS [facility] Last Admin: 11/13/16 21:58 Dose: 20 mg Citalopram Hydrobromide (Celexa) 20 mg PO DAILY [facility] Divalproex Sodium (Depakote Er) 500 mg PO BID [facility] Last Admin: 11/14/16 09:57 Dose: 500 mg Furosemide (Lasix) 30 mg PO DAILY [facility] Last Admin: 11/14/16 10:00 Dose: 30 mg Haloperidol (Haldol) 0.5 mg PO Q6H PRN PRN Reason: Extreme agitation Haloperidol Decanoate (Haldol Liquid) 0.5 mg PO Q6H PRN Haloperidol Lactate (Haldol) 0.5 mg IM Q6H PRN PRN Reason: Extreme agitation Levothyroxine Sodium (Synthroid) 25 mcg PO ACB [facility] Last Admin: 11/14/16 06:44 Dose: 25 mcg Loratadine (Claritin) 10 mg PO ACB [facility] Last Admin: 11/14/16 06:44 Dose: 10 mg Lorazepam (Ativan) 0.5 mg PO Q6H PRN PRN Reason: Extreme agitation Last Admin: 11/12/16 01:03 Dose: 0.5 mg Lorazepam (Ativan Inj) 0.5 mg IM Q6H PRN PRN Reason: Extreme agitation Lorazepam (Ativan Intensol) 0.5 mg SL Q6H PRN Meloxicam (Mobic) 7.5 mg PO WB [facility] Last Admin: 11/14/16 09:57 Dose: 7.5 mg Multivitamins/Minerals (Vision) 1 tab PO DAILY [facility] Last Admin: 11/14/16 09:57 Dose: 1 tab Nicotine (Nicotine Patch Removal) 1 removal TD DAILY [facility] Last Admin: 11/14/16 09:00 Dose: 1 removal Nicotine (Nicoderm) 14 mg TD DAILY [facility] Last Admin: 11/14/16 10:01 Dose: 14 mg Omeprazole (Prilosec) 20 mg PO ACB [facility] Last Admin: 11/14/16 06:44 Dose: 20 mg Tiotropium [place] (Spiriva) 1 cap ORAL INH DAILY [facility] Last Admin: 11/12/16 08:00 Dose: 1 cap Subjective: Patient seen and chart reviewed. Case discussed with treatment team. On interview, patient is pleasant and cooperative, reports that her mood is good. Patient denies any SI, HI or AVH. Patient denies any adverse side effects related to psychotropic medications. EKG completed on 11/14 showed QTc of 450ms. Discussed this with patient and that I had to recommend decreasing Celexa to 20mg d/t interaction with omeprazole. Discussed alternative of switching antidepressants. She understands but worries about becoming more depressed as other antidepressants have not been helpful in past. Agreed to seek help early if started becoming more depressed again and whether patient at that point would want to go back to 40mg with increased risk of arrhythmia d/t interaction or switch at that time. She does not feel she can go without omeprazole. Nursing staff report patient has been pleasant/cooperative, socializing well with no behavioral difficulties on unit. Patient slept well overnight. VSS. Patient is eating well. Psychotropic PRNs required in the past 24 hours: none. Start Time: 09:20 Stop Time: 09:40 Mental Status Exam Vitals: Last Vital Signs Temp 97.8 F 11/14/16 16:00 Pulse 80 11/14/16 16:00 Resp 18 11/14/16 16:00 BP 124/65 11/14/16 16:00 Pulse Ox 92 11/14/16 16:00 Height: 1.7 m Weight: 87.7 kg - Mental Status Exam Muscle Strength/Tone: Normal Dressing: Casual Grooming: Fair Attitude: Cooperative Motor Activity: Normal Eye Contact: Good Speech: Normal Volume: Soft Rhythm: Appropriate Rhythm Sensory: Alert Orientation: Oriented to person, Oriented to place Mood: Neutral (Appropriate affect) Rate of Thoughts: Delayed Thought Organization: Organized Associations: Intact Abstract Reasoning: Intact, able to abstract Thought Content: Normal Perception/Psychotic: Hx psychosis, not current Fund of Knowledge: Sabrina aware current events Memory: Grossly Intact Suicidal Ideation: Denies Homicidal Ideation: Denies Insight: Fair Judgement: Fair Impulse Control: Good - Laboratory Result Diagrams: 11/10/16 04:34 11/10/16 04:34 Assessment and Plan (1) Bipolar 1 disorder Current visit: Yes Status: Chronic Decreased Celexa to 20mg d/t interaction with omeprazole (see HPI for further info). Check VPA level in AM - decide whether may be worse increasing Depakote since decreasing antidepressant. Hospitalist rechecking labs in AM as well.
[2016-11-14] MEDS: ATORVASTATIN 20 MG TABLET PO SCH (21:37)
[2016-11-15] MEDS: OMEPRAZOLE 20 MG CAPSULE PO SCH (05:59)
[2016-11-15] MEDS: LORATADINE 10 MG TABLET PO SCH (05:59)
[2016-11-15] MEDS: LEVOTHYROXINE 25 MCG TABLET PO SCH (06:00)
[2016-11-15] MEDS: IPRATROPIUM/ALBUTEROL 2.5mg-0.5mg/3ml NEB AEROSOL SCH ×4 (07:00→20:05)
[2016-11-15] MEDS: TIOTROPIUM 18mcg/cap HANDIHALER ORAL INH SCH (08:25)
[2016-11-15] MEDS: MULTI-VIT + MINERAL (Opti-gen) TABLET PO SCH (10:36)
[2016-11-15] MEDS: DIVALPROEX ER 500 MG TABLET PO SCH ×2 (10:37→21:04)
[2016-11-15] MEDS: FUROSEMIDE 20 MG TABLET PO SCH (10:37)
[2016-11-15] MEDS: MELOXICAM 7.5 MG TABLET PO SCH (10:37)
[2016-11-15] MEDS: ALLOPURINOL 300 MG TABLET PO SCH (10:37)
[2016-11-15] MEDS: NICOTINE PATCH REMOVAL TD SCH (10:38)
[2016-11-15] MEDS: NICOTINE 14 MG PATCH TD SCH (10:38)
[2016-11-15] MEDS: CITALOPRAM 20 MG TABLET PO SCH (10:51)
[2016-11-15] MEDS: ATORVASTATIN 20 MG TABLET PO SCH (21:04)
--- NOTE | 2016-11-15 21:52 | Neuropsych Progress Note ---
[facility] Subjective Date: 11/15/16 - Sujective/Severity of Illness Medications: Acetaminophen/Hydrocodone Bitart ([place] 5/325) 1 tab PO Q6HR PRN PRN Reason: Pain Last Admin: 11/11/16 22:11 Dose: 1 tab Albuterol/Ipratropium (Duoneb) 3 ml AEROSOL QID [facility] Last Admin: 11/15/16 20:05 Dose: 3 ml Albuterol/Ipratropium (Duoneb) 3 ml AEROSOL Q6H PRN Allopurinol (Zyloprim) 300 mg PO DAILY [facility] Last Admin: 11/15/16 10:37 Dose: 300 mg Atorvastatin Calcium (Lipitor) 20 mg PO HS [facility] Last Admin: 11/15/16 21:04 Dose: 20 mg Citalopram Hydrobromide (Celexa) 20 mg PO DAILY [facility] Last Admin: 11/15/16 10:51 Dose: 20 mg Divalproex Sodium (Depakote Er) 500 mg PO BID [facility] Last Admin: 11/15/16 21:04 Dose: 500 mg Furosemide (Lasix) 30 mg PO DAILY [facility] Last Admin: 11/15/16 10:37 Dose: 30 mg Haloperidol (Haldol) 0.5 mg PO Q6H PRN PRN Reason: Extreme agitation Haloperidol Decanoate (Haldol Liquid) 0.5 mg PO Q6H PRN Haloperidol Lactate (Haldol) 0.5 mg IM Q6H PRN PRN Reason: Extreme agitation Levothyroxine Sodium (Synthroid) 25 mcg PO ACB [facility] Last Admin: 11/15/16 06:00 Dose: 25 mcg Loratadine (Claritin) 10 mg PO ACB [facility] Last Admin: 11/15/16 05:59 Dose: 10 mg Lorazepam (Ativan) 0.5 mg PO Q6H PRN PRN Reason: Extreme agitation Last Admin: 11/12/16 01:03 Dose: 0.5 mg Lorazepam (Ativan Inj) 0.5 mg IM Q6H PRN PRN Reason: Extreme agitation Lorazepam (Ativan Intensol) 0.5 mg SL Q6H PRN Meloxicam (Mobic) 7.5 mg PO WB [facility] Last Admin: 11/15/16 10:37 Dose: 7.5 mg Multivitamins/Minerals (Vision) 1 tab PO DAILY [facility] Last Admin: 11/15/16 10:36 Dose: 1 tab Nicotine (Nicotine Patch Removal) 1 removal TD DAILY [facility] Last Admin: 11/15/16 10:38 Dose: 1 removal Nicotine (Nicoderm) 14 mg TD DAILY [facility] Last Admin: 11/15/16 10:38 Dose: 14 mg Omeprazole (Prilosec) 20 mg PO ACB [facility] Last Admin: 11/15/16 05:59 Dose: 20 mg Tiotropium [place] (Spiriva) 1 cap ORAL INH DAILY [facility] Last Admin: 11/15/16 08:25 Dose: 1 cap Subjective: Patient is a 71 year-old female with history of bipolar disorder. She is on Celexa , depakote and clonazepam. Her Depakote level today was 49.2. The Celexa was decreased to 20mg daily due to patient been on Omeprazole. Patient was seen today and reports that her mood is "just fine". Patient reports that she is doing okay and denies any suicide or homicide ideation. Her appetite has been good. Patient reports that she had an experience last night when she was floating and felt that there might have been earth quake. Start Time: 17:15 Stop Time: 17:30 Mental Status Exam Vitals: Last Vital Signs Temp 97.2 F 11/15/16 19:19 Pulse 89 11/15/16 19:19 Resp 18 11/15/16 20:05 BP 124/66 11/15/16 19:19 Pulse Ox 93 11/15/16 19:19 Height: 1.7 m Weight: 87.7 kg - Mental Status Exam Muscle Strength/Tone: Normal Dressing: Casual Grooming: Fair Attitude: Cooperative Motor Activity: Normal Eye Contact: Good Speech: Normal Volume: Soft Rhythm: Appropriate Rhythm Orientation: Oriented to person, Oriented to place Mood: Euthymic Rate of Thoughts: Delayed Thought Organization: Organized Associations: Intact Abstract Reasoning: Intact, able to abstract Thought Content: Normal Perception/Psychotic: Hx psychosis, not current Fund of Knowledge: Sabrina aware current events Memory: Grossly Intact Suicidal Ideation: Denies Homicidal Ideation: Denies Insight: Fair Judgement: Fair Impulse Control: Good - Laboratory Result Diagrams: 11/15/16 04:43 11/15/16 04:43 Laboratory Results - last 24 hr 11/15/16 11/15/16 11/15/16 04:43 04:43 04:43 WBC 7.3 RBC 3.74 L Hgb 11.3 L Hct 34.9 L MCV 93.3 MCH 30.2 MCHC 32.4 RDW Std Deviation 48.0 Plt Count 220 MPV 11.5 Immature Gran % (Auto) 0.5 Neut % (Auto) 36.9 Lymph % (Auto) 44.4 [place] % (Auto) 13.0 H Eos % (Auto) 4.5 H Baso % (Auto) 0.7 Neut # 2.7 Lymph # 3.2 [place] # 1.0 H Eos # 0.3 Baso # 0.1 Abs Immat Gran (auto) 0.04 H Turbidity < 20 Sodium 133 L Potassium 4.8 Chloride 97 L Carbon Dioxide 29 Anion Gap 7 BUN 23.0 H Creatinine 0.6 L GFR Calculation 99 BUN/Creatinine Ratio 38 H Glucose 92 Calculated Osmolality 260 L Calcium 9.2 Phosphorus 3.6 Icterus Index < 2 Albumin 3.3 L Specimen Hemolysis < 15 Valproic Acid 49.2 L Assessment and Plan (1) Bipolar 1 disorder Current visit: Yes Status: Chronic (2) COPD (chronic obstructive pulmonary disease) Current visit: Yes Status: Chronic (3) HTN (hypertension) Current visit: Yes Status: Chronic (4) Osteoarthritis Current visit: Yes Status: Chronic (5) PUD (peptic ulcer disease) Current visit: Yes Status: Chronic (6) Hyponatremia Current visit: Yes Status: Resolved Patient to continue current medications and will monitor response to decrease celexa.
[2016-11-16] MEDS: IPRATROPIUM/ALBUTEROL 2.5mg-0.5mg/3ml NEB AEROSOL SCH ×3 (08:28→20:10)
[2016-11-16] MEDS: TIOTROPIUM 18mcg/cap HANDIHALER ORAL INH SCH (10:04)
--- NOTE | 2016-11-16 10:16 | Progress Note ---
Subjective: Linette was still in bed this am but easily awakened. She rested well last night. She denied any concerns and stated that she was ready to get up for breakfast and get some "real coffee". She is wheezing but she reported that is fairly usual and that she doesn't feel short of breath. She denies any pain. Objective Vital signs: Temp Pulse Resp BP Pulse Ox 97.2 F 89 18 124/66 94 11/15/16 19:19 11/15/16 19:19 11/16/16 07:26 11/15/16 19:19 11/16/16 07:26 Weight: 87.7 kg - Constitutional Present: no acute distress, well nourished, well developed, obese, cooperative - Routine HEENT Exam ENT: Present: mucous membranes moist - Routine Respiratory Exam Present: wheezes - Routine Cardiovascular Exam Present: S1, S2, murmur (3-4/6) - Routine Abdominal Exam Present: soft, normoactive bowel sounds, non distended, non tender - Routine Extremities Exam Present: no edema, pulses intact, normal capillary refill - Routine Musculoskeletal Exam Musculoskeletal: no joint swelling - Routine Skin Exam Present: intact, dry, warm - Routine Neurological Exam Present: alert, oriented X3 - Routine Psychiatric Exam Present: normal affect, normal thought process Results - Labs CBC & Chem 7: 11/15/16 04:43 11/15/16 04:43 Assessment and Plan (1) Hyponatremia Current visit: Yes Status: Resolved (2) UTI (urinary tract infection) Current visit: Yes Status: Acute (3) COPD (chronic obstructive pulmonary disease) Current visit: Yes Status: Chronic (4) HTN (hypertension) Current visit: Yes Status: Chronic (5) PUD (peptic ulcer disease) Current visit: Yes Status: Chronic (6) Osteoarthritis Current visit: Yes Status: Chronic (7) Delirium Problem details: rule out, secondary to uti Current visit: Yes Status: Chronic (8) Bipolar 1 disorder Current visit: Yes Status: Chronic (9) Mild protein-calorie malnutrition Current visit: Yes Status: Acute Assessment and Plan: Mild hyponatremia -Na 133 on 11/15/16 -reassess on 11/17/16 -weight stable COPD -wheezing today; continue Oxygen, DuoNeb, Spiriva -CXR from 11/09/16 reviewed - no edema or infiltrates HTN -well controlled on Lasix Psychiatry progress note reviewed. Sepsis Assessment - Evaluation Sepsis screening result: No Definite Risk - Focused Exam Vital Signs Resp Pulse Ox 11/16/16 07:26 18 94 Respiratory exam: Present: decreased breath sounds, prolonged expiratory phase, wheezes. Absent: rhonchi Cardiovascular exam: Present: RRR, S1, S2 Capillary refill: < 2-3 Seconds Hospital Course Summary Disclaimer: The visit summary below is not to be considered part of the above Progress Note. Hospital Course: 11/09/16 14:29 . Bipolar with behavioral disturbance and suicidal ideation. * Agree with admission to [facility] for further evaluation and psychiatric treatment. * Provide a safe and supportive environment, encouraging patient to participate in floor activities. * Obtain admission work up. CBC, CMP and UA obtained prior to admission at [facility]. Obtain remaining labs and imaging - results pending. . UTI, acute. * UA obtained at [facility] revealed >50 WBC and + bacteria. Patient was given Keflex 500mg po x 1 dose with no RX provided. Will restart Keflex 500mg x 10 days. * Monitor closely for signs of worsening infection. . Hyponatremia, present on admission. * Sodium 135 per [facility] labs on 11/08. Encourage oral intake and will recheck labs on 11/10 to monitor electrolytes and renal function. . Protein calorie malnutrition, mild, present on admission. * Prealbumin was 12.7 on admission. Consult dietary for recommendations. . Hypertension, chronic. * Continue home lasix 30mg and monitor closely. . COPD, chronic. * Patient was noticeably short of breath with ambulation on exam and lung sounds were wheezy. Continue home spiriva. * Supplemental O2 to maintain SAO2 >90% and monitor pulse oximetry Q2-4 hours and as needed. * DuoNeb QID and PRN for dyspnea. . GERD, chronic. * Continue home omeprozole. . Hypothryoidism, chronic. * TSH on admission was 1.79. Continue home synthroid. . Hyperlipidemia, chronic. * Lipid panel pending. * Continue home atorvastatin. . Chronic pain. * Continue home [place]. . Gout. * Continue home allopurinol. Upon discharge, patient's care will be returned to her PCP. 11/12/16 14:10 UTI - ruled out -urine culture was negative; no dysuria -DC abx Hyponatremia -improved to 137 Mild PCM -nutritional consult - eating well with selected food preferences; 24 hour intake 99 gm PRO and 1940 kcal COPD -stable today Psych notes reviewed - improving 11/14/16 09:52 11/14/16- *BPAD- Per attending. Behavior is improving per nursing notes. *Pyuria- Cx negative. Asx. Abx. DC'd *HTN- BP is normalized. Continue Lasix. Monitor hydration. Repeat labs in AM. *COPD, w/o exacerbation- Continue current inhaled medications. *Hx. PUD- PPI. Slow improvement. Continue supportive care. 11/16/16 10:22 Mild hyponatremia -Na 133 on 11/15/16 -reassess on 11/17/16 -weight stable COPD -wheezing today; continue Oxygen, DuoNeb, Spiriva -CXR from 11/09/16 reviewed - no edema or infiltrates HTN -well controlled on Lasix Psychiatry progress note reviewed.
[2016-11-16] MEDS: FUROSEMIDE 20 MG TABLET PO SCH (11:10)
[2016-11-16] MEDS: DIVALPROEX ER 500 MG TABLET PO SCH ×2 (11:10→20:43)
[2016-11-16] MEDS: ALLOPURINOL 300 MG TABLET PO SCH (11:10)
[2016-11-16] MEDS: MULTI-VIT + MINERAL (Opti-gen) TABLET PO SCH (11:11)
[2016-11-16] MEDS: CITALOPRAM 20 MG TABLET PO SCH (11:11)
[2016-11-16] MEDS: LORATADINE 10 MG TABLET PO SCH (11:11)
[2016-11-16] MEDS: OMEPRAZOLE 20 MG CAPSULE PO SCH (11:11)
[2016-11-16] MEDS: MELOXICAM 7.5 MG TABLET PO SCH (11:11)
[2016-11-16] MEDS: LEVOTHYROXINE 25 MCG TABLET PO SCH (11:12)
[2016-11-16] MEDS: NICOTINE 14 MG PATCH TD SCH (11:12)
[2016-11-16] MEDS: NICOTINE PATCH REMOVAL TD SCH (11:13)
--- NOTE | 2016-11-16 17:34 | Neuropsych Progress Note ---
[facility] Subjective Date: 11/16/16 - Sujective/Severity of Illness Medications: Acetaminophen/Hydrocodone Bitart ([place] 5/325) 1 tab PO Q6HR PRN PRN Reason: Pain Last Admin: 11/11/16 22:11 Dose: 1 tab Albuterol/Ipratropium (Duoneb) 3 ml AEROSOL QID [facility] Last Admin: 11/16/16 16:15 Dose: 3 ml Albuterol/Ipratropium (Duoneb) 3 ml AEROSOL Q6H PRN Allopurinol (Zyloprim) 300 mg PO DAILY [facility] Last Admin: 11/16/16 11:10 Dose: 300 mg Atorvastatin Calcium (Lipitor) 20 mg PO HS [facility] Last Admin: 11/15/16 21:04 Dose: 20 mg Citalopram Hydrobromide (Celexa) 20 mg PO DAILY [facility] Last Admin: 11/16/16 11:11 Dose: 20 mg Divalproex Sodium (Depakote Er) 500 mg PO BID [facility] Last Admin: 11/16/16 11:10 Dose: 500 mg Furosemide (Lasix) 30 mg PO DAILY [facility] Last Admin: 11/16/16 11:10 Dose: 30 mg Haloperidol (Haldol) 0.5 mg PO Q6H PRN PRN Reason: Extreme agitation Haloperidol Decanoate (Haldol Liquid) 0.5 mg PO Q6H PRN Haloperidol Lactate (Haldol) 0.5 mg IM Q6H PRN PRN Reason: Extreme agitation Levothyroxine Sodium (Synthroid) 25 mcg PO ACB [facility] Last Admin: 11/16/16 11:12 Dose: 25 mcg Loratadine (Claritin) 10 mg PO ACB [facility] Last Admin: 11/16/16 11:11 Dose: 10 mg Lorazepam (Ativan) 0.5 mg PO Q6H PRN PRN Reason: Extreme agitation Last Admin: 11/12/16 01:03 Dose: 0.5 mg Lorazepam (Ativan Inj) 0.5 mg IM Q6H PRN PRN Reason: Extreme agitation Lorazepam (Ativan Intensol) 0.5 mg SL Q6H PRN Meloxicam (Mobic) 7.5 mg PO WB [facility] Last Admin: 11/16/16 11:11 Dose: 7.5 mg Multivitamins/Minerals (Vision) 1 tab PO DAILY [facility] Last Admin: 11/16/16 11:11 Dose: 1 tab Nicotine (Nicotine Patch Removal) 1 removal TD DAILY [facility] Last Admin: 11/16/16 11:13 Dose: 1 removal Nicotine (Nicoderm) 14 mg TD DAILY [facility] Last Admin: 11/16/16 11:12 Dose: 14 mg Omeprazole (Prilosec) 20 mg PO ACB [facility] Last Admin: 11/16/16 11:11 Dose: 20 mg Tiotropium [place] (Spiriva) 1 cap ORAL INH DAILY [facility] Last Admin: 11/16/16 10:04 Dose: 1 cap Subjective: Patient seen, chart reviewed and case discussed with nursing staff. Patient was seen to be in good mood and reports that she is ready for discharge. She had a good night sleep last night of about 9 hours and has had good appetite. She denies any depressive symptoms and denies any morbid thoughts, suicide ideation , intent or plans to hurt herself or some other person. She denies any grandiose ideation and no auditory or visual hallucination. The plan will be to discharge patient tomorrow if she continues to be stable. Start Time: 12:20 Stop Time: 12:40 Mental Status Exam Vitals: Last Vital Signs Temp 97.7 F 11/16/16 16:00 Pulse 85 11/16/16 16:00 Resp 18 11/16/16 16:15 BP 126/70 11/16/16 16:00 Pulse Ox 96 11/16/16 16:00 Height: 1.7 m Weight: 87.7 kg - Mental Status Exam Muscle Strength/Tone: Normal Dressing: Casual Grooming: Good Attitude: Cooperative Motor Activity: Normal Eye Contact: Good Speech: Normal Volume: Normal Rhythm: Appropriate Rhythm Orientation: Oriented to person, Oriented to place, Oriented to time Mood: Euthymic Rate of Thoughts: Appropriate Rate Thought Organization: Organized Associations: Intact Abstract Reasoning: Intact, able to abstract Thought Content: Normal Perception/Psychotic: Hx psychosis, not current Fund of Knowledge: Sabrina aware current events Memory: Grossly Intact Suicidal Ideation: Denies Homicidal Ideation: Denies Insight: Fair Judgement: Fair Impulse Control: Good - Laboratory Result Diagrams: 11/15/16 04:43 11/15/16 04:43 Assessment and Plan (1) Bipolar 1 disorder Current visit: Yes Status: Chronic (2) COPD (chronic obstructive pulmonary disease) Current visit: Yes Status: Chronic (3) HTN (hypertension) Current visit: Yes Status: Chronic (4) Osteoarthritis Current visit: Yes Status: Chronic (5) PUD (peptic ulcer disease) Current visit: Yes Status: Chronic (6) Hyponatremia Current visit: Yes Status: Resolved Possible discharge tomorrow after contact with patient's family.
[2016-11-16] MEDS: HYDROCODONE/APAP 5mg/325mg TABLET PO PRN (19:27)
[2016-11-16] MEDS: ATORVASTATIN 20 MG TABLET PO SCH (21:34)
[2016-11-16] MEDS ORDERED: ACETAMINOPHEN 325 MG TABLET PO PRN (23:51)
[2016-11-17] MEDS: LORATADINE 10 MG TABLET PO SCH (05:34)
[2016-11-17] MEDS: LEVOTHYROXINE 25 MCG TABLET PO SCH (05:34)
[2016-11-17] MEDS: OMEPRAZOLE 20 MG CAPSULE PO SCH (05:34)
[2016-11-17] MEDS: IPRATROPIUM/ALBUTEROL 2.5mg-0.5mg/3ml NEB AEROSOL SCH ×3 (08:16→15:00)
[2016-11-17] MEDS: FUROSEMIDE 20 MG TABLET PO SCH (09:26)
[2016-11-17] MEDS: DIVALPROEX ER 500 MG TABLET PO SCH (09:27)
[2016-11-17] MEDS: NICOTINE 14 MG PATCH TD SCH (09:27)
[2016-11-17] MEDS: MULTI-VIT + MINERAL (Opti-gen) TABLET PO SCH (09:27)
[2016-11-17] MEDS: MELOXICAM 7.5 MG TABLET PO SCH (09:27)
[2016-11-17] MEDS: ALLOPURINOL 300 MG TABLET PO SCH (09:27)
[2016-11-17] MEDS: CITALOPRAM 20 MG TABLET PO SCH (09:27)
[2016-11-17] MEDS: NICOTINE PATCH REMOVAL TD SCH (09:31)
[2016-11-17] MEDS: TIOTROPIUM 18mcg/cap HANDIHALER ORAL INH SCH (09:40)
--- NOTE | 2016-11-17 09:45 | Discharge Summary ---
Discharge Plan - Med Rec/Dispo Referrals/Follow Up: Benjamin Gomez DO [Physician] - (Dr. Libia Gomez will see patient on rounds at the facility for Hosp. follow-up. [phone]. Patient will be seen on rounds for Mental Health follow-up. .) Additional Instructions: Discharge Diagnosis: IN CASE OF PSYCHIATRIC EMERGENCY, CONTACT GENERATIONS STAFF AT [phone] ( available 24 hrs daily.) Prescriptions: New Nicotine Patch [Nicoderm] 14 mg TD DAILY patch Albuterol/Ipratropium [Duoneb] 3 ml AEROSOL QID ampul Continue Tiotropium Handihaler [Spiriva] 18 mcg ORAL INH DAILY MULTI-VIT + MINERAL (Opti-gen) [Vision] 1 tab PO DAILY Omeprazole [Prilosec] 20 mg PO AC Atorvastatin [Lipitor] 20 mg PO HS Levothyroxine Tab [Synthroid] 25 mcg PO ACB Meloxicam [Mobic] 7.5 mg PO DAILY Acetaminophen [Tylenol] 650 mg PO Q6H PRN PRN Reason: Pain Debrox 4 drops EACH EAR DAILY PRN PRN Reason: clogged ears Hydrocodone/APAP 5/325 [[place] 5/325] 1 tab PO Q6HR PRN #30 PRN Reason: Pain Allopurinol [Zyloprim] 300 mg PO DAILY Furosemide [Lasix] 30 mg PO DAILY Loratadine [Claritin] 10 mg PO DAILY Guaifenesin Oral Liq [Robitussin] 100 mg PO Q4H PRN PRN Reason: cough or congestion No Action ClonazePAM [Klonopin] 0.5 mg PO TID PRN PRN Reason: Anxiety Robitussin Cough-Chest Dm Liq 5 ml PO Q6H PRN PRN Reason: cough Divalproex ER [Depakote ER] 500 mg PO BID Citalopram [Celexa] 40 mg PO DAILY - Disposition 01 Discharged Home, Self-Care
--- NOTE | 2016-11-17 12:55 | Discharge Summary ---
Discharge Plan - Med Rec/Dispo Referrals/Follow Up: Benjamin Gomez DO [Physician] - (Dr. Libia Gomez will see patient on rounds at the facility for Hosp. follow-up. [phone]. Patient will be seen on rounds for Mental Health follow-up. 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 IN CASE OF PSYCHIATRIC EMERGENCY, CONTACT GENERATIONS STAFF AT [phone] ( available 24 hrs daily.) Prescriptions: New Nicotine Patch [Nicoderm] 14 mg TD DAILY patch Citalopram [Celexa] 20 mg PO DAILY Albuterol/Ipratropium [Duoneb] 3 ml AEROSOL QID ampul Acetaminophen [Tylenol] 325 - 650 mg PO Q5H PRN PRN Reason: Discomfort Continue Tiotropium Handihaler [Spiriva] 18 mcg ORAL INH DAILY MULTI-VIT + MINERAL (Opti-gen) [Vision] 1 tab PO DAILY Omeprazole [Prilosec] 20 mg PO AC Atorvastatin [Lipitor] 20 mg PO HS Levothyroxine Tab [Synthroid] 25 mcg PO ACB Meloxicam [Mobic] 7.5 mg PO DAILY Acetaminophen [Tylenol] 650 mg PO Q6H PRN PRN Reason: Pain Robitussin Cough-Chest Dm Liq 5 ml PO Q6H PRN PRN Reason: cough Debrox 4 drops EACH EAR DAILY PRN PRN Reason: clogged ears Hydrocodone/APAP 5/325 [[place] 5/325] 1 tab PO Q6HR PRN #30 PRN Reason: Pain Divalproex ER [Depakote ER] 500 mg PO BID Allopurinol [Zyloprim] 300 mg PO DAILY Furosemide [Lasix] 30 mg PO DAILY Loratadine [Claritin] 10 mg PO DAILY Guaifenesin Oral Liq [Robitussin] 100 mg PO Q4H PRN PRN Reason: cough or congestion Discontinued ClonazePAM [Klonopin] 0.5 mg PO TID PRN PRN Reason: Anxiety Citalopram [Celexa] 40 mg PO DAILY Discharge Instructions/Outpatient Orders: Final Provider Discharge Instructions Location: Determined By Patient - Disposition [address] [facility] Home/Facility
--- NOTE | 2016-11-17 13:04 | Extended Care Facility Orders ---
Admission Orders Admit to:: [facility] Allergies/Adverse Reactions: Allergies adhesive tape Adverse Reaction (Unknown, Verified 11/09/16 03:41) aspirin Adverse Reaction (Unknown, Verified 11/09/16 03:43) sulfamethoxazole Adverse Reaction (Unknown, Verified 11/09/16 03:43) sulfanilamide Adverse Reaction (Unknown, Verified 11/09/16 03:44) Admitting Diagnosis: Bipolar Disorder Admitting Physician: Jordon Sanchez MD Attending Physician: Jordon Sanchez MD Code Status: Full Code Anticiapted Length of Stay: greater than 30 days Rehab Potential: fair Rehab Prognosis: fair Diet: 11/09/16 Breakfast Regular Diet [DIET] Diet Modifications: Retirement Certification: I certify that SNF services are required to be given on an Inpatient basis because of the patients need for [facility] care on a continuing basis for the condition(s) for which he/she received inpatient hospital services prior to his/her transfer to the SNF. SNF inpatient care is necessary for the following reasons - Additional Information Referrals: Benjamin Gomez DO [Physician] - (Dr. Libia Gomez will see patient on rounds at the facility for Hosp. follow-up. [phone]. Patient will be seen on rounds for Mental Health follow-up. .)
--- NOTE | 2016-11-17 16:49 | Neuropsychiatric Disch Summary ---
Discharge Information Date of admission: 11/08/16 21:32 Anticipated date of discharge: 11/17/16 Attending Physician: Jordon Sanchez MD Consults: 11/09/16 00:24 Case Management Consult [CONS] Routine Reason For Exam: H & P, medical management Physician Consult [CONS] Routine Consulting Provider: Liv Montanez Reason For Exam: H & P, medical management Ordering Provider has Notified Electron Beam Welder: Malathi 11/09/16 14:32 Dietary Consult [CONS] Routine Comment: Reason For Exam: - Discharge Diagnosis (1) Bipolar 1 disorder Status: Chronic (2) COPD (chronic obstructive pulmonary disease) Status: Chronic (3) HTN (hypertension) Status: Chronic (4) Osteoarthritis Status: Chronic (5) PUD (peptic ulcer disease) Status: Chronic (6) Hyponatremia Status: Resolved - Laboratory Labs: 11/15/16 04:43 11/17/16 05:09 - Microbiology Microbiology 11/09/16 12:04 Urine, Clean Catch/Voided Urine Culture - Final No Growth After 2 Days Date of Admission: 11/08/16 21:32 History of Present Illness: HPI By Dr. Irby: pt. seen, chart reviewed. case discussed w rn, and community integration specialist. mrs. barrett is a 71 year old , white female, on disability for bipolar disorder, who was sent here to [facility] from via [facility] in [place] for admission due to safety concerns. she was brought to their er due to being agitated and wanting to kill herself. she reports she had thoughts of taking a knife to herself to end her life. she reports she also had thoughts of harming others and describes it as "i just wanted to smash things." this was at her senior living, [facility] [place], [place] she has had previous suicide attempts by menas such as cutting her wrist or overdose. in speaking w her myself this morning, she reports "i guess i wanted to kill myself." she reported to me she had been having such thoughts for 3-4 days prior to her admission. she endorses feeling paranoid lately, then describes it as "just people, they think i'm sticky fingered." she denies having any auditory or visual hallucinations. denies si at the time of my visit this am. she appears more dysphoric during my initial visit and certainly not manic although she reports she has felt manic within the last few weeks and she has had isomnia. she does not demonstrate any energy, or heightened mood or grandiosity or pressured speech today. she is well oriented and is aware of her surroundings and the situation. pts strengths: ambulatory, has supervision in custodial. pt weaknesses: poor coping skills, chronic mental illness. Hospital Course Hospital course: Patient was admitted due to relapse of depressive symptoms. She was placed on suicide precautions on admission and based on the diagnostic information from patient and the facility, she was diagnosed with Bipolar disorder MRE mixed. She had symptoms identifiable with the diagnosis. Patient was re-started on her home medication which included Depakote ER and Celexa. However, it was noted that patient was also on Omeprazole and due to the concern of interaction of Omeprazole and Celexa causing prolonged Qtc, the Celexa was decreased to 20mg. Patient did not want to change to another anti-depressant, because Celexa appeared to have worked for her. A baseline EKG showed a Qtc that was within the normal limit. Patient was also treated for UTI with Keflex during this hospital stay. On the day of discharge, patient was seen to be in good mood. She denied any suicide or homicide ideation and no auditory or visual hallucination. Discharge Plan - Med Rec/Dispo Referrals/Follow Up: Benjamin Gomez DO [Physician] - (Dr. Libia Gomez will see patient on rounds at the facility for Hosp. follow-up. [phone]. Patient will be seen on rounds for Mental Health follow-up. 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 IN CASE OF PSYCHIATRIC EMERGENCY, CONTACT GENERATIONS STAFF AT [phone] ( available 24 hrs daily.) Prescriptions: New Nicotine Patch [Nicoderm] 14 mg TD DAILY patch Citalopram [Celexa] 20 mg PO DAILY Albuterol/Ipratropium [Duoneb] 3 ml AEROSOL QID ampul Acetaminophen [Tylenol] 325 - 650 mg PO Q5H PRN PRN Reason: Discomfort Continue Tiotropium Handihaler [Spiriva] 18 mcg ORAL INH DAILY MULTI-VIT + MINERAL (Opti-gen) [Vision] 1 tab PO DAILY Omeprazole [Prilosec] 20 mg PO AC Atorvastatin [Lipitor] 20 mg PO HS Levothyroxine Tab [Synthroid] 25 mcg PO ACB Meloxicam [Mobic] 7.5 mg PO DAILY Acetaminophen [Tylenol] 650 mg PO Q6H PRN PRN Reason: Pain Robitussin Cough-Chest Dm Liq 5 ml PO Q6H PRN PRN Reason: cough Debrox 4 drops EACH EAR DAILY PRN PRN Reason: clogged ears Hydrocodone/APAP 5/325 [[place] 5/325] 1 tab PO Q6HR PRN #30 PRN Reason: Pain Divalproex ER [Depakote ER] 500 mg PO BID Allopurinol [Zyloprim] 300 mg PO DAILY Furosemide [Lasix] 30 mg PO DAILY Loratadine [Claritin] 10 mg PO DAILY Guaifenesin Oral Liq [Robitussin] 100 mg PO Q4H PRN PRN Reason: cough or congestion Discontinued ClonazePAM [Klonopin] 0.5 mg PO TID PRN PRN Reason: Anxiety Citalopram [Celexa] 40 mg PO DAILY Discharge Instructions/Outpatient Orders: Final Provider Discharge Instructions Location: Determined By Patient - Disposition 04 To [facility] Home/Facility
== END 2016-11-17 16:12 | DRG 885 ==
LOC: GEN 21:32
PROVIDERS: ADMIT Psychiatry & Neurology Psychiatry; ATTEND Psychiatry & Neurology Psychiatry